=== PATIENT | male | born 1965 | race Hispanic/Latino ===

== ENCOUNTER → 2017-04-09 | Outpatient (CLI) | payer OTHER ==
--- NOTE | 2017-04-09 14:33 | REP ---
RIGHT ANKLE SERIES: Four views. HISTORY: A injury right foot. FINDINGS: Clothing artifact is seen overlying the calf. There is anterolateral soft tissue swelling. Ankle mortise is intact. No fracture is evident. IMPRESSION: Anterolateral swelling at the ankle. No fracture seen. Signed by Hugh Freed MD 04/09/2017 03:15 P
--- NOTE | 2017-04-09 14:33 | REP ---
RIGHT FOOT SERIES: Four views. HISTORY: Injury right foot. FINDINGS: Four views of the right foot demonstrate normal bones, joints, and soft tissues. There is dorsal lateral swelling. No fractures seen. IMPRESSION: No fracture noted. Signed by Hugh Freed MD 04/09/2017 03:15 P
== END ==
LOC: M LRY 13:37
PROVIDERS: ATTEND Nurse Practitioner Family
DX: S99.921A Unspecified injury of right foot, initial encounter (principal); X58.XXXA Exposure to other specified factors, initial encounter; Y92.89 Other specified places as the place of occurrence of the external cause; Y93.89 Activity, other specified; Y99.8 Other external cause status

== ENCOUNTER → 2020-11-08 | Outpatient (CLI) | payer OTHER ==
--- NOTE | 2020-11-18 11:35 | REP ---
INDICATION: RIGHT THUMB PAIN. COMPARISON: None. TECHNIQUE: Axial noncontrast images through the 1st digit with coronal and sagittal reformations. FINDINGS: A small 2 mm triangular density is identified at the 1st digit interphalangeal joint which may represent small chronic foreign body. The 1st digit including the carpometacarpal and metacarpophalangeal joint are otherwise normal in appearance. Small normal ossicles are identified at the MCP joint. No further foreign body related to the 1st digit is appreciated. A small 2 mm similar appearing density adjacent to the head of the 2nd metacarpal bone is also identified and may also represent small chronic foreign body. IMPRESSION: 1. Very small chronic appearing foreign body within the soft tissue as described above. 2. Osseous structures and joint spaces are otherwise essentially age-appropriate and normal. <Electronically signed by Bogdan Wallace > 11/18/20 [id number]
== END ==
LOC: M RAD 07:17
PROVIDERS: ATTEND Family Medicine
DX: M79.5 Residual foreign body in soft tissue (principal)

== ENCOUNTER → 2025-04-03 | Outpatient (REF) | LOC: M PLAIMG 09:05 | PROVIDERS: ATTEND Internal Medicine | DX: Z01.89 Encounter for other specified special examinations (principal) ==